=== PATIENT | male | born 2000 | race Caucasian/White ===

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

== ENCOUNTER 2019-04-14 15:57 | Emergency (ER) | payer BC ==
[~2019-04-14] VITALS: Ht 160 cm; Wt 62.7 kg
[~2019-04-14 15:57] MED LIST changes: +IBUP800T48 PO; +MED4DP PO
[2019-04-14 16:15] VITALS: BP 104/60; PULSE 75; RESP 16; Ht 160 cm; Wt 62.7 kg
[2019-04-14] MEDS ORDERED: IBUPROFEN 800 MG TAB PO ONE (16:30)
== END 2019-04-14 17:54 | disposition home or self-care (01) ==
LOC: FTE 15:57
DX: S92.534A Nondisplaced fracture of distal phalanx of right lesser toe(s), initial encounter for closed fracture (principal); W20.8XXA Other cause of strike by thrown, projected or falling object, initial encounter; Y92.9 Unspecified place or not applicable
CPT/HCPCS: 73630; L3260; Z7502; Z7610